=== PATIENT | male | born 1950 | race Caucasian/White ===

== ENCOUNTER 2023-10-19 11:48 | Inpatient (IN) | payer OTHER ==
[~2023-10-19] VITALS: Ht 175.3 cm; Wt 117.3 kg
[2023-10-19] MEDS: SODIUM CHLORIDE 0.9% 500 ML IV ONE (12:15)
[2023-10-19 12:50] LABS: Basophils # (auto) 0.1 10 ^3/uL (0-0.2); Basophils % (auto) 0.6 % (0.0-2.0); Eosinophils # (auto) 0.5 10 ^3/uL (0-0.8); Hematocrit 38.3 % (41.0-53.0); Hemoglobin 12.3 g/dL (13.5-17.5); Lymphocytes # (auto) 1.5 10 ^3/uL (0.4-5.4); Lymphocytes % (auto) 13.1 % (10.0-50.0); Mean Corpuscular Hemoglobin 26.2 pg (28.0-32.0); Mean Corpuscular Hgb Conc. 32.2 g/dL (32.0-36.0); Mean Corpuscular Volume 81.5 fL (80.0-100.0); Monocytes % (auto) 8.9 % (0.0-12.0); Neutrophils # (auto) 8.4 10 ^3/uL (1.6-8.6); Neutrophils % (auto) 73.4 % (37.0-80.0); Red Cell Distribution Width 15.2 % (11.8-14.3); White Blood Cell 11.5 10^3/uL (4.4-10.8)
[2023-10-19 13:21] LABS: Chloride 101 mmol/L (98-107); Potassium 5.2 mmol/L (3.5-5.1); Sodium 135 mmol/L (136-145)
[2023-10-19 13:22] LABS: Anion Gap 9 (5-15); Calcium 9.6 mg/dL (8.7-10.4); Carbon Dioxide 25 mmol/L (20-30)
[2023-10-19 13:27] LABS: BUN/Creatinine Ratio 16.1 (10.0-20.0); Blood Urea Nitrogen 18 mg/dL (9-23); Glucose 155 mg/dL (74-106)
[2023-10-19 13:28] LABS: Magnesium 1.1 mg/dL (1.6-2.6)
[2023-10-19 13:29] LABS: Creatine Kinase IFCC 1057 U/L (46-171)
[2023-10-19 14:00] LABS: Urine Bacteria NONE SEEN /hpf (None Seen); Urine Blood Negative /uL (Negative); Urine Clarity Clear (Clear); Urine Color Straw (Yellow); Urine Protein, UAD Negative (Negative); Urine Specific Gravity 1.017 (1.001-1.035); Urine Urobilinogen Normal (Negative); Urine WBC 1 /hpf (0 - 3)
[2023-10-19 15:25] VITALS: PULSE 97; RESP 18; O2SAT 96
[2023-10-19] MEDS ORDERED: DEXTROSE (50%) 50ML SYRG IV PRN (16:45)
[2023-10-19] MEDS ORDERED: DOCUSATE SOD 100 MG CAP PO PRN (16:45)
[2023-10-19] MEDS: ACCU-CHEK COMFORT CURVE STRIP VI SCH (17:00)
[2023-10-19] MEDS: InsuLIN REG 1unit/0.01ml Soln (100units/ml) SC SCH (17:00)
[2023-10-19] MEDS: LIDOCAINE 2% JELLY 11ml (GLYDO) UR ONE (18:23)
[2023-10-19] MEDS: SODIUM CHLORIDE 0.9% 1,000 ML IV SCH (18:34)
[2023-10-19] MEDS: MAGNESIUM SULFATE 1GM/100ML 100 ML IV SCH ×2 (18:34→21:30)
[2023-10-19] MEDS: MORPHINE SULFATE INJ 2 MG/ml SYRG IV PRN (18:35)
[2023-10-19] MEDS: ONDANSETRON HCL 4 MG/2 ML VIAL IV PRN (18:35)
[2023-10-19] MEDS: ENOXAPARIN SOD 40 MG/0.4 ML SYRINGE SC SCH (18:35)
[2023-10-19 19:30] VITALS: PULSE 95; RESP 20; O2SAT 95
[2023-10-19 22:24] VITALS: PULSE 94
[2023-10-19 22:43] VITALS: BP 119/62; PULSE 55; PULSE 84; RESP 18; TEMP 98.7; O2SAT 94
[2023-10-19] MEDS ORDERED: LORazepam 2MG/ML-1ML VIAL IV PRN (23:00)
[2023-10-19 23:28] LABS: Free T4 (Free Thyroxine) 1.1 ng/dL (0.89-1.76)
[2023-10-19 23:29] LABS: Folate (Folic Acid) 13.93 ng/mL (>5.38)
[2023-10-19 23:46] LABS: Amphetamine Screen, Urine Neg (NEGATIVE); Barbiturate Scree,Urine Neg (NEGATIVE); Benzodiazephine Screen, Urine Neg (NEGATIVE); Cannabinoid Screen, Urine Neg (NEGATIVE); Cocaine Screen, Urine Neg (NEGATIVE); Opiate Scree,Urine Pos (NEGATIVE); Phencyclidine Screen, Urine Neg (NEGATIVE)
[2023-10-20 00:50] VITALS: BP 127/67; PULSE 84; RESP 19; TEMP 99; O2SAT 93
[2023-10-20] MEDS ORDERED: ONDA-188 (01:06)
[2023-10-20] MEDS ORDERED: FURO40TA4 PO (01:06)
[2023-10-20] MEDS ORDERED: ATOR20TA50 PO (01:06)
[2023-10-20] MEDS ORDERED: HYDR-3682 PO (01:06)
[2023-10-20] MEDS ORDERED: BENA-36 PO (01:06)
[2023-10-20 05:13] VITALS: BP 146/75; PULSE 90; RESP 17; TEMP 98.3; O2SAT 92
[2023-10-20 07:02] LABS: Basophils # (auto) 0.1 10 ^3/uL (0-0.2); Basophils % (auto) 0.6 % (0.0-2.0); Eosinophils # (auto) 0.7 10 ^3/uL (0-0.8); Hemoglobin 12.2 g/dL (13.5-17.5); Lymphocytes # (auto) 1.3 10 ^3/uL (0.4-5.4); Lymphocytes % (auto) 13.4 % (10.0-50.0); Mean Corpuscular Hemoglobin 26.3 pg (28.0-32.0); Mean Corpuscular Volume 82.1 fL (80.0-100.0); Monocytes # (auto) 0.8 10 ^3/uL (0-1.3); Monocytes % (auto) 8.8 % (0.0-12.0); Neutrophils # (auto) 6.7 10 ^3/uL (1.6-8.6); Neutrophils % (auto) 70.2 % (37.0-80.0); Nucleated Red Blood Cells % 0.1 %; Red Blood Cells 4.63 10^6/uL (4.5-5.90); Red Cell Distribution Width 14.7 % (11.8-14.3); White Blood Cell 9.6 10^3/uL (4.4-10.8)
[2023-10-20 07:20] LABS: Alanine Aminotransferase 33 U/L (7-40); Alkaline Phosphatase 80 U/L (46-116); Anion Gap 10 (5-15); Aspartate Aminotransferase 60 U/L (13-40); BUN/Creatinine Ratio 12.4 (10.0-20.0); Bilirubin, Total 0.5 mg/dL (0.2-1.0); Blood Urea Nitrogen 13 mg/dL (9-23); Calcium 9.2 mg/dL (8.5-10.1); Carbon Dioxide 24 mmol/L (20-30); Chloride 102 mmol/L (98-107); Glucose 139 mg/dL (74-106); Potassium 4.6 mmol/L (3.5-5.1); Sodium 136 mmol/L (136-145); Total Protein 6.1 g/dL (5.7-8.2)
[2023-10-20 08:00] VITALS: PULSE 88
[2023-10-20 09:00] VITALS: BP 119/69; PULSE 91; RESP 21; TEMP 97.8; O2SAT 94
[2023-10-20 16:40] VITALS: BP 143/82; PULSE 89; RESP 20; O2SAT 93
== END 2023-10-20 18:33 | disposition home health service (06) | DRG 641 ==
LOC: EDBD 11:48 → ER 11:48 → TELE 16:55 → TELE-WESTW 23:10
PROVIDERS: ADMIT Nurse Practitioner Family; ATTEND Internal Medicine Geriatric Medicine
DX: E83.42 Hypomagnesemia (principal); M62.82 Rhabdomyolysis; E87.1 Hypo-osmolality and hyponatremia; E87.5 Hyperkalemia; D72.829 Elevated white blood cell count, unspecified; F17.200 Nicotine dependence, unspecified, uncomplicated; I10 Essential (primary) hypertension; G20.A1 Parkinson's disease without dyskinesia, without mention of fluctuations; G25.0 Essential tremor; E78.5 Hyperlipidemia, unspecified; W07.XXXA Fall from chair, initial encounter; E11.65 Type 2 diabetes mellitus with hyperglycemia
CPT/HCPCS: 36415; 70450; 70551; 72125; 72131; 80048; 80053; 80307; 81001; 82550; 82553; 82607; 82746; 82962; 83735; 84100; 84439; 84443; 85025; 93970; 95819; 97110; 97116; 97163; 97530; G0378; J1815; J2405